=== PATIENT | female | born 1965 | race American Indian/Alaskan Native ===

== ENCOUNTER 2018-04-09 12:08 | Emergency (ER) | payer OTHER ==
[2018-04-09 12:31] VITALS: O2SAT 99
[2018-04-09] MEDS ORDERED: Sodium Chloride 0.9% 500 ML IV STA (12:46)
[2018-04-09 13:13] LABS: PH,URINE 6.5 (4.7-8.0); URINE BILIRUBIN NEGATIVE (NEGATIVE); URINE BLOOD LARGE (NEGATIVE); URINE GLUCOSE (UA) 100 mg/dL (NEGATIVE); URINE LEUKOCYTE ESTERASE SMALL Leu/uL (NEGATIVE); URINE PROTEIN >=300 mg/dL (<30 mg/dL)
[2018-04-09 13:15] LABS: BASO # 0.02 K/mm3 (0.0-2.0); BASO % 0.4 % (0.0-3.0); EOS # 0.1 (0.0-0.7); EOS % 1.3 % (1.5-5.0); GRAN # 1.96 (1.4-6.5); LYMPH # 2.5 (1.2-3.4); LYMPH % 51.9 % (22.0-35.0); MEAN CELL VOLUME 91.1 fl (80.0-105.0); MEAN CORPUSCULAR HEMOGLOBIN 29.6 pg (25.0-35.0); MEAN CORPUSCULAR HGB CONC 32.5 g/dl (31.0-37.0); MEAN PLATELET VOLUME 7.9 fl (7.0-11.0); MONO # 0.3 (0.1-0.6); MONO % 5.4 % (1.0-6.0); RBC 3.71 10^6/uL (3.5-6.1); RED CELL DISTRIBUTION WIDTH 13.2 % (11.5-14.5); WHITE BLOOD COUNT 4.8 10^3/ul (4.5-11.0)
[2018-04-09 13:16] LABS: URINE APPEARANCE TURBID (CLEAR); URINE COLOR RED (YELLOW)
[2018-04-09 13:22] LABS: URINE BACTERIA FEW (NEG); URINE EPITHELIAL CELLS 0 - 2 /hpf (0-5); URINE RBC TNTC /hpf (0-2); URINE WBC 0 - 2 /hpf (0-6)
[2018-04-09 13:25] LABS: ALB/GLOB RATIO 1.3 (1.1-1.8); ALBUMIN 4.5 g/dL (3.0-4.8); ALT/SGPT 18 U/L (7-56); AST/SGOT 21 U/L (14-36); BLOOD UREA NITROGEN 9 mg/dL (7-21); CALCIUM 9.4 mg/dL (8.4-10.5); GFR NON-AFRICAN AMERICAN > 60
[2018-04-09 13:27] LABS: INR 1.03; PARTIAL THROMBOPLASTIN TIME 28.4 Seconds (25.1-36.5); PROTHROMBIN TIME 11.9 SECONDS (9.4-12.5)
--- NOTE | 2018-04-09 14:24 | CT ---
Date of service: 04/09/2018 PROCEDURE: CT Abdomen and Pelvis without intravenous contrast HISTORY: Right flank pain, hematuria COMPARISON: April 09, 2018. Pelvic ultrasound. TECHNIQUE: Unenhanced. Neither IV nor oral contrast adminstered Radiation dose: Total exam DLP = 910.71 mGy-cm. This CT exam was performed using one or more of the following dose reduction techniques: Automated exposure control, adjustment of the mA and/or kV according to patient size, and/or use of iterative reconstruction technique. FINDINGS: LOWER THORAX: Unremarkable. LIVER: Unremarkable. No gross lesion or ductal dilatation. GALLBLADDER AND BILE DUCTS: Unremarkable. PANCREAS: Unremarkable. No gross lesion or ductal dilatation. SPLEEN: Unremarkable. ADRENALS: Unremarkable. No mass. KIDNEYS AND URETERS: Unremarkable. No hydronephrosis. No solid mass. VASCULATURE: Unremarkable. No aortic aneurysm. BOWEL: Constipation without fecal impaction or obstruction. APPENDIX: Unremarkable. Normal appendix. PERITONEUM: Unremarkable. No free fluid. No free air. LYMPH NODES: Unremarkable. No enlarged lymph nodes. BLADDER: Unremarkable. REPRODUCTIVE: Unremarkable. BONES: No acute fracture. OTHER FINDINGS: None. IMPRESSION: No significant or acute findings to account for/ related to the clinical presentation. Additional benign and/or incidental findings described above.
--- NOTE | 2018-04-09 14:26 | US ---
Date of service: 04/09/2018 HISTORY: Postmenopausal vaginal bleeding. LMP approximately 4 years ago. COMPARISON: April 09, 2018. Abdomen and pelvis. TECHNIQUE: Transvaginal only. Real -time technique with 2D, duplex and color Doppler FINDINGS: UTERUS: Measures 3.2 x 4.9 x 7.6 cm. Normal in size and appearance. Location of fibroid and size: Posterior, subserosal 1.3 x 1.4 x 1.4 cm ENDOMETRIUM: Measures 6.2 mm in diameter. Unremarkable. CERVIX: No cervical abnormality identified. RIGHT OVARY: Measures 0.9 x 1.8 x 2.3 cm. No solid mass. Normal flow. LEFT OVARY: Not visible FREE FLUID: No significant free fluid noted. OTHER FINDINGS: None. IMPRESSION: No acute findings related to/accounting for the clinical presentation. Heterogeneous uterus containing a solitary small sub serosal fibroid. Limitations of the current examination: Nonvisualization left adnexa.
[2018-04-09] MEDS ORDERED: cefTRIAXone 1 gm 1 GM/100 ML BAG IVPB STA (14:37)
--- NOTE | 2018-04-09 14:38 | ED PDOC ---
Arrival/HPI - General Historian: Patient - History of Present Illness Narrative History of Present Illness (Text): 04/09/18 14:40 52 yo female w/PMHx of HTN come in for evaluation of hematuria developed since today AM. Pt reports, some Right sided flank pain " instant few days ago, resolved spontaneously". Otherwise, pt denies fever, chills, headache, dizziness, neck pain, sore throat, abd. pain, N/v/D, UTI sx, vaginal irritation or discharge, denies previous hx of kidney stones. Ambulate to Ed for evaluation, not in any apparent distress. <Alicja Pichardo - Last Filed: 04/09/18 15:40> <Madi Birmingham - Last Filed: 04/09/18 17:25> - General Chief Complaint: Abdominal Pain Time Seen by Provider: 04/09/18 12:33 Past Medical History - Provider Review Nursing Documentation Reviewed: Yes - Travel History Have you recently traveled outside [place] w/in the past 3 mons?: No - Reproductive Menopause: Yes (2003) - Cardiac Hx Cardiac Disorders: No - Pulmonary Hx Respiratory Disorders: No - Neurological Hx Neurological Disorder: No - HEENT Hx HEENT Disorder: No - Renal Hx Renal Disorder: No - Endocrine/Metabolic Hx Endocrine Disorders: No - Hematological/Oncological Hx Blood Disorders: No - Integumentary Hx Dermatological Disorder: No - Musculoskeletal/Rheumatological Hx Musculoskeletal Disorders: No - Gastrointestinal Hx Gastrointestinal Disorders: No - Genitourinary/Gynecological Hx Genitourinary Disorders: No - Psychiatric Hx Psychophysiologic Disorder: Yes Hx Anxiety: Yes Hx Substance Use: No - Surgical History Hx Section: Yes <Alicja Pichardo - Last Filed: 04/09/18 15:40> Family/Social History - Physician Review Nursing Documentation Reviewed: Yes Family/Social History: No Known Family HX Smoking Status: Never Smoked Hx Alcohol Use: No Frequency of alcohol use: Few days per week Hx Substance Use: No <Alicja Pichardo - Last Filed: 04/09/18 15:40> Allergies/Home Meds <Alicja Pichardo - Last Filed: 04/09/18 15:40> <Madi Birmingham - Last Filed: 04/09/18 17:25> Allergies/Adverse Reactions: Allergies No Known Allergies Allergy (Verified 04/09/18 12:30) Home Medications: Home Meds Medication Instructions Recorded Confirmed Atenolol 50 mg PO DAILY 04/09/18 04/09/18 amLODIPine [Norvasc] 10 mg PO DAILY 04/09/18 04/09/18 Review of Systems - Physician Review All systems were reviewed & negative as marked: Yes - Review of Systems Constitutional: Normal ENT: Normal Respiratory: Normal Cardiovascular: Normal Gastrointestinal: Normal Genitourinary Female: Hematuria, Vaginal Bleeding (?). absent: Dysuria, Frequency, Vaginal Discharge Musculoskeletal: Normal Skin: Normal Neurological: Normal Endocrine: Normal Hemo/Lymphatic: Normal <Alicja Pichardo - Last Filed: 04/09/18 15:40> Physical Exam Vital Signs Temp Pulse Resp BP Pulse Ox 04/09/18 12:26 98.7 F 67 17 135/82 99 Temperature: Afebrile Blood Pressure: Normal Pulse: Regular Respiratory Rate: Normal Appearance: Positive for: Well-Appearing, Non-Toxic, Comfortable Pain Distress: None Mental Status: Positive for: Alert and Oriented X 3 - Systems Exam Conjunctiva: Present: Normal Mouth: Present: Moist Mucous Membranes. No: Drooling Pharnyx: No: ERYTHEMA Neck: Present: Trachea Midline Respiratory/Chest: Present: Clear to Auscultation, Good Air Exchange. No: Respiratory Distress, Accessory Muscle Use Cardiovascular: Present: Regular Rate and Rhythm, Normal S1, S2. No: Murmurs Abdomen: No: Tenderness, Distention, Peritoneal Signs, Rebound, Guarding Back: No: CVA Tenderness Upper Extremity: Present: Normal ROM Lower Extremity: Present: Normal ROM. No: CALF TENDERNESS, Swelling Neurological: Present: GCS=15, Speech Normal Skin: Present: Warm, Dry, Normal Color. No: Rashes Psychiatric: Present: Alert, Oriented x 3, Normal Insight, Normal Concentration <Alicja Pichardo - Last Filed: 04/09/18 15:40> Vital Signs Temp Pulse Resp BP Pulse Ox 04/09/18 14:51 70 18 121/69 99 04/09/18 12:26 98.7 F 67 17 135/82 99 <Madi Birmingham - Last Filed: 04/09/18 17:25> Medical Decision Making ED Course and Treatment: 04/09/18 Pt was OBS in ED for 2 hours and remained stable. On re-evaluation, pt is afebrile, hemodynamicaly stable. Non-toxic. Ambulatory in Ed with stable gait. ENT: no acute findings Neck: Supple, (-) JVD Lungs: CTA B/L, BS equal B/L Abd: benign, (-) localized tenderness back: (-) CVA tenderness Neurologicaly intact. Blood work review and appears normal, no evidence of anemia, or dehydration. UA (+)nitrate Ucx- pending Pt received Rocephin empirically. CT A/P, Transvaginal US review (-) acute abnormalities. Pt has clinical findings c/w hematuria, UTI. results review and discussed with pt. Pt advised. ref. to f/u with PMD, COATING ENGINEER in 2-3 days for re-eavl. return to ED if any worsening or new changes. - Lab Interpretations Lab Results: 04/09/18 13:10 04/09/18 13:10 Lab Results 04/09/18 13:10: PT 11.9, INR 1.03, APTT 28.4 04/09/18 13:10: Sodium 140, Potassium 4.2, Chloride 107, Carbon Dioxide 27, Anion Gap 11, BUN 9, Creatinine 0.8, Est GFR ( Amer) > 60, Est GFR (Non- Af Amer) > 60, Random Glucose 95, Calcium 9.4, Total Bilirubin 0.4, AST 21, ALT 18, Alkaline Phosphatase 51, Total Protein 8.0, Albumin 4.5, Globulin 3.5, Albumin/Globulin Ratio 1.3 04/09/18 13:10: WBC 4.8, RBC 3.71, Hgb 11.0 L, Hct 33.8 L, MCV 91.1, MCH 29.6, MCHC 32.5, RDW 13.2, Plt Count 349, MPV 7.9, Gran % 41.0 L, Lymph % (Auto) 51.9 H, [place] % (Auto) 5.4, Eos % (Auto) 1.3 L, Baso % (Auto) 0.4, Gran # 1.96, Lymph # (Auto) 2.5, [place] # (Auto) 0.3, Eos # (Auto) 0.1, Baso # (Auto) 0.02 04/09/18 13:00: Urine Color Red, Urine Appearance Turbid, Urine pH 6.5, Ur Specific [place] 1.020, Urine Protein >=300 H, Urine Glucose (UA) 100 H, Urine Ketones Trace H, Urine Blood Large H, Urine Nitrate Positive H, Urine Bilirubin Negative, Urine Urobilinogen 2.0 H, Ur Leukocyte Esterase Small H, Urine RBC Tntc, Urine WBC 0 - 2, Ur Epithelial Cells 0 - 2, Urine Bacteria Few - RAD Interpretation Narrative RAD Interpretations (Text): 04/09/18 14:35 CT A/P w/o contrast IMPRESSION: No significant or acute findings to account for/ related to the clinical presentation. Additional benign and/or incidental findings described above. Transvaginal US IMPRESSION: No acute findings related to/accounting for the clinical presentation. Heterogeneous uterus containing a solitary small sub serosal fibroid. Limitations of the current examination: Nonvisualization left adnexa. Radiology Orders: 04/09/18 12:46 ABD & PELVIS W/O PO OR IV CONT [CT] Stat 04/09/18 12:48 TRANSVAGINAL [US] Stat - Medication Orders Current Medication Orders: Discontinued Medications Sodium Chloride (Sodium Chloride 0.9%) 500 mls @ 1,000 mls/hr IV .Q30M STA Stop: 04/09/18 13:15 <Alicja Pichardo - Last Filed: 04/09/18 15:40> - Lab Interpretations Lab Results: 04/09/18 13:10 04/09/18 13:10 Lab Results 04/09/18 13:10: PT 11.9, INR 1.03, APTT 28.4 04/09/18 13:10: Sodium 140, Potassium 4.2, Chloride 107, Carbon Dioxide 27, A nion Gap 11, BUN 9, Creatinine 0.8, Est GFR ( Amer) > 60, Est GFR (Non-Af Amer) > 60, Random Glucose 95, Calcium 9.4, Total Bilirubin 0.4, AST 21, ALT 18, Alkaline Phosphatase 51, Total Protein 8.0, Albumin 4.5, Globulin 3.5, Albumin/Globulin Ratio 1.3 04/09/18 13:10: WBC 4.8, RBC 3.71, Hgb 11.0 L, Hct 33.8 L, MCV 91.1, MCH 29.6, MCHC 32.5, RDW 13.2, Plt Count 349, MPV 7.9, Gran % 41.0 L, Lymph % (Auto) 51.9 H, [place] % (Auto) 5.4, Eos % (Auto) 1.3 L, Baso % (Auto) 0.4, Gran # 1.96, Lymph # (Auto) 2.5, [place] # (Auto) 0.3, Eos # (Auto) 0.1, Baso # (Auto) 0.02 04/09/18 13:00: Urine Color Red, Urine Appearance Turbid, Urine pH 6.5, Ur Specific [place] 1.020, Urine Protein >=300 H, Urine Glucose (UA) 100 H, Urine Ketones Trace H, Urine Blood Large H, Urine Nitrate Positive H, Urine Bilirubin Negative, Urine Urobilinogen 2.0 H, Ur Leukocyte Esterase Small H, Urine RBC Tntc, Urine WBC 0 - 2, Ur Epithelial Cells 0 - 2, Urine Bacteria Few - RAD Interpretation Radiology Orders: 04/09/18 12:46 ABD & PELVIS W/O PO OR IV CONT [CT] Stat 04/09/18 12:48 TRANSVAGINAL [US] Stat - Medication Orders Current Medication Orders: Discontinued Medications Sodium Chloride (Sodium Chloride 0.9%) 500 mls @ 1,000 mls/hr IV .Q30M STA Stop: 04/09/18 13:15 Last Admin: 04/09/18 13:10 Dose: 1,000 mls/hr eMAR Start Stop Document 04/09/18 13:10 HI (Rec: [facility]09/18 15:01 [id number] Intravenous Solution Start Date 04/09/18 Start Time 13:10 Ceftriaxone Sodium (Rocephin 1 Gram Ivpb) 1 gm in 100 mls @ 100 mls/hr IVPB STAT STA; Protocol Stop: 04/09/18 15:36 Last Admin: 04/09/18 15:00 Dose: 100 mls/hr eMAR Start Stop Document 04/09/18 15:00 HI (Rec: 04/09/18 15:00 [id number] Intravenous Solution Start Date 04/09/18 Start Time 15:00 <Madi Birmingham - Last Filed: 04/09/18 17:25> - PA / CARDIAC CATHETERIZATION TECHNICIAN / Resident Statement / has reviewed & agrees with the documentation as recorded. <Madi Birmingham - Last Filed: 04/09/18 17:25> Disposition/Present on Arrival - Present on Arrival Any Indicators Present on Arrival: No History of DVT/PE: No History of Uncontrolled Diabetes: No Urinary Catheter: No History of Decub. Ulcer: No History Surgical Site Infection Following: None - Disposition Have Diagnosis and Disposition been Completed?: Yes Disposition Time: 14:36 Patient Plan: Discharge <Alicja Pichardo - Last Filed: 04/09/18 15:40> <Madi Birmingham - Last Filed: 04/09/18 17:25> - Disposition Diagnosis: UTI (urinary tract infection) Disposition: HOME/ ROUTINE Patient Problems: Current Active Problems Problem Status Onset UTI (urinary tract infection) Acute Condition: STABLE Discharge Instructions (ExitCare): Urinary Tract Infections in Adults Additional Instructions: Encourage fluids Take medication as prescribed Follow up wit PMD, COATING ENGINEER in 2-3 days for re-evaluation. return to Ed if any worsening or new changes. Prescriptions: Nitrofurantoin Macrocrystals [Macrobid] 1 cap PO BID #14 cap Referrals: Jatinder Clark MD [Primary Care Provider] - Follow up with primary Forms: [facility] (Martiniquais)
[2018-04-09 14:51] VITALS: RESP 18
[2018-04-09 23:56] VITALS: BP 124/72; PULSE 69; TEMP 98.2
== END 2018-04-09 16:15 | disposition home or self-care (01) ==
LOC: ED 12:08
DX: N39.0 Urinary tract infection, site not specified (principal); I10 Essential (primary) hypertension
CPT/HCPCS: 74176; 76830; 80053; 81001; 85025; 85610; 85730; 87086; 96374; 99284; J0696; J7040